=== PATIENT | male | born 1930 | race Caucasian/White ===

== ENCOUNTER 2017-05-28 18:00 | Inpatient (IN) | payer MEDICARE ==
[~2017-05-28] VITALS: Ht 193 cm; Wt 98.9 kg
--- NOTE | 2017-05-28 18:05 | NUR ---
BRA 77 FROM HOME, FOUND BY FAMILY LYING ON THE FLOOR S/P FALL LAST NIGHT. RT SIDE OF FACE HEMATOMA, MULTIPLE BRUISING NOTED ALL OVER BODY. PATIENT A/OX 3. BREATHING EVEN AND UNLABORED. NO SOB. VITALS STABLE. SAFETY AND COFMORT MEASURES IN PLACE. AWAITING MD ORDERS.
--- NOTE | 2017-05-28 18:10 | NUR ---
GRAPHIC PRE PRESS TRADES WORKER AT BEDSIDE FOR BLOOD DRAW
--- NOTE | 2017-05-28 18:21 | NUR ---
PATIENT MEDICATED PER MD ORDERS.
[2017-05-28 18:27] LABS: EOSINOPHILS % (AUTO) 0.2 % (0.0-6.0); NEUTROPHILS # (AUTO) 16.6 /CMM (1.8-8.9)
[2017-05-28] MEDS ORDERED: IV NS 0.9% 1,000 ML BAG IV ONE ×2 (18:30→19:00)
[2017-05-28 18:34] LABS: BASOPHILS % (AUTO) 0.1 % (0.0-2.0); HEMATOCRIT 35 % (39-51); LYMPHOCYTES # (AUTO) 1.1 /CMM (0.8-4.8); LYMPHOCYTES % (AUTO) 5.8 % (20.0-44.0); MEAN CORPUSCULAR HEMOGLOBIN 30 PG (26.0-33.0); MEAN CORPUSCULAR HGB CONC 34 g/dl (31.0-36.0); MEAN CORPUSCULAR VOLUME 89 fL (80-96); MONOCYTES # (AUTO) 1.4 /CMM (0.1-1.30); MONOCYTES % (AUTO) 7.5 % (2.0-12.0); NEUTROPHILS % (AUTO) 86.4 % (43.0-81.0); PLATELET COUNT (AUTO) 150 /CMM (150-450); RDW COEFFICIENT OF VARIATION 14.7 (11.5-15.0); RED BLOOD CELL COUNT(AUTO) 3.93 MIL/uL (4.5-6.0); WHITE BLOOD COUNT (AUTO) 19.1 K/uL (4.3-11.0)
[2017-05-28 18:47] LABS: ALANINE AMINOTRANSFERASE 90 U/L (12-78); ALBUMIN 3.6 g/dL (3.4-5.0); ALCOHOL, BLOOD < 3 mg/dL (0-0); ALKALINE PHOSPHATASE 80 U/L (46-116); ASPARTATE AMINOTRANSFERASE 598 U/L (15-37); BILIRUBIN,DIRECT 0.2 mg/dL (0.0-0.2); BILIRUBIN,TOTAL 1.1 mg/dL (0.2-1.0); CALCIUM, SERUM 9.2 mg/dL (8.5-10.1); CARBON DIOXIDE 21 mmol/L (21-32); CHLORIDE 106 mmol/L (98-107); CREATININE 3.5 mg/dL (0.6-1.3); GLUCOSE 153 mg/dL (74-106); POTASSIUM 5.9 mmol/L (3.5-5.1); SODIUM SERUM 139 mmol/L (136-145); TOTAL PROTEIN, SERUM 7.6 g/dL (6.4-8.2)
[2017-05-28 18:49] LABS: TROPONIN I 13.743 ng/mL (0.00-0.056)
[2017-05-28 18:51] LABS: UREA NITROGEN, BLOOD 93 mg/dL (7-18)
--- NOTE | 2017-05-28 18:55 | NUR ---
CALLED (LOCKSTITCH CUP SETTER BLIND ESCORT), TRANSFERRED CALL TO .
--- NOTE | 2017-05-28 19:10 | NUR ---
16 FR eckert catheter inserted per sterile protocal. Immediate output 350 ML of urine, light brown with clots.
--- NOTE | 2017-05-28 19:10 | NUR ---
REPORT GIVEN TO MARI BARON FOR ELIAS.
--- NOTE | 2017-05-28 19:12 | NUR ---
RECEIVED REPORT FROM TOD ORELLANA
[2017-05-28] MEDS ORDERED: CT SWABBABLE VALVE TRANS SET 1 EA INFUS.SET MC ONE (19:18)
[2017-05-28] MEDS ORDERED: IOHEXOL-300 100 ML VIAL IV ONE ×2 (19:18→19:52)
--- NOTE | 2017-05-28 19:25 | NUR ---
PT TO CT
--- NOTE | 2017-05-28 19:51 | NUR ---
NEW IV STARTED ON RAC, 18 G IN RADIOLOGY. IV ON LEFT AC NO LONGER PATENT.
--- NOTE | 2017-05-28 20:04 | NUR ---
PT RETURNED FROM CT.
[2017-05-28 20:11] LABS: INR 0.96 (0.87-1.13)
[2017-05-28 20:39] LABS: APPEARANCE,URINE Slightly Cloudy (CLEAR); BILIRUBIN,URINE SMALL (NEGATIVE); BLOOD, URINE Large Ery/uL (NEGATIVE); COLOR,URINE Dark (YELLOW); KETONES,URINE Negative (NEGATIVE); LEUKOCYTE ESTERASE ,URINE Negative (NEGATIVE); NITRITE, URINE Negative (NEGATIVE); PH,URINE 5.5 (5.0-8.0); PROTEIN,URINE 100 mg/dl (NEGATIVE); UGLUCOSE Negative (NEGATIVE); UROBILINOGEN,URINE 0.2 EU/dL (0.2)
--- NOTE | 2017-05-28 20:40 | NUR ---
FAMILY AT BEDSIDE
--- NOTE | 2017-05-28 20:44 | NUR ---
LAB AT BEDSIDE FOR LACTIC REDRAW
[2017-05-28 20:50] LABS: BACTERIA,URINE Rare /HPF (None Seen); RBC,URINE 21-50 /HPF (0-2); SQUAMOUS EPITHELIAL CELL,UR Few /HPF (None Seen); WBC,URINE 0-2 /HPF (0-3)
[2017-05-28] MEDS ORDERED: MORPHINE SULFATE INJ 2 MG/ML DISP.SYRIN IV ONE (21:30)
[2017-05-28] MEDS ORDERED: CEFTRIAXONE 1GM BAG (ER ONLY) 1 GM/50 ML PIGGYBACK IV ONE (21:30)
[2017-05-28] MEDS ORDERED: ONDANSETRON HCL/PF - ER 4 MG/2 ML VIAL IV ONE (21:30)
--- NOTE | 2017-05-28 21:31 | NUR ---
DR. KO SPEAKING TO PT AND FAMILY REGARDING RESULTS
--- NOTE | 2017-05-28 21:34 | NUR ---
CALLED NURSING SUP. FOR ICU BED
--- NOTE | 2017-05-28 21:35 | NUR ---
KELLIE CHOU, SREE RAMSEY NP ULTIMATE HOOPS TRAINER
--- NOTE | 2017-05-28 21:46 | NUR ---
DR.KASHANI CHOU
[2017-05-28] MEDS ORDERED: CEFTRIAXONE 1GM BAG (ER ONLY) 50 ML IV ONE (21:48)
[2017-05-28] MEDS ORDERED: ONDANSETRON HCL/PF 4 MG/2 ML VIAL ONE (21:48)
[2017-05-28] MEDS ORDERED: MORPHINE SULFATE INJ 4 MG/ML DISP.SYRIN ONE (21:48)
--- NOTE | 2017-05-28 22:00 | NUR ---
PT REFUSED ZOFRAN AND MORPHINE AT THIS TIME. RISK AND BENEFITS EXPLAINED X3. PT STRONGLY REFUSES AT THIS TIME.
--- NOTE | 2017-05-28 22:20 | NUR ---
ICU 256
--- NOTE | 2017-05-28 22:32 | NUR ---
PATRICE FROM ICU STATES THEY ARE NOT ABLE TO TAKE REPORT AT THIS TIME AND WILL CALL SOON THEY ARE AVAILBLE
--- NOTE | 2017-05-28 23:11 | NUR ---
REPORT GIVEN TO TOD WHITLOCK FOR ELIAS.
[2017-05-28] MEDS ORDERED: ACETAMINOPHEN 325 MG TABLET PO PRN (23:30)
[2017-05-28] MEDS ORDERED: IV NS 0.9% 1,000 ML IV PRN (23:30)
[2017-05-28] MEDS ORDERED: ONDANSETRON HCL/PF 4 MG/2 ML VIAL IVP PRN (23:30)
[2017-05-28] MEDS ORDERED: MAG HYDROX/AL HYDROX/SIMETH 30 ML UDC PO PRN (23:30)
[2017-05-28] MEDS ORDERED: Z GUARD REMEDY 2 OZ OINT TP PRN (23:30)
--- NOTE | 2017-05-28 23:49 | NUR ---
PT TRASNFERRED TO ICU 254 Addendum: 05/28/17 at 2349 by CARLITOS PER ACLS PROTOCOL
[2017-05-29] VITALS (25 sets, daily range): BP systolic 95–135; BP diastolic 46–80
[2017-05-29 01:06] LABS: CALCIUM, SERUM 8.3 mg/dL (8.5-10.1); CARBON DIOXIDE 18 mmol/L (21-32); CHLORIDE 107 mmol/L (98-107); CREATININE 3.4 mg/dL (0.6-1.3); GLUCOSE 174 mg/dL (74-106); POTASSIUM 5.8 mmol/L (3.5-5.1); SODIUM SERUM 137 mmol/L (136-145)
[2017-05-29 01:11] LABS: UREA NITROGEN, BLOOD 90 mg/dL (7-18)
[2017-05-29] MEDS ORDERED: SODIUM POLYSTYRENE SULFONATE 15 G/60 ML BOTTLE PO ONE (02:00)
[2017-05-29] MEDS ORDERED: SODIUM POLYSTYRENE SULFONATE 15 G/60 ML BOTTLE ONE (02:36)
--- NOTE | 2017-05-29 03:17 | NUR ---
FLOOR DIRECTOR. ADMISSION. RECEIVED THE PT FROM ER VIA [facility]. ROOM 256. ADMITTED THE PT TO ICU FOR SEPSIS,N STEMI.PT AWAKE, ALERT, FOLLOW COMMANDS. FURNITURE REMOVALIST SHOWING NSR. OXYGEN 2L VIA NASAL CANNULA. SAT 99%, NO ACUTE DISTRESS NOTED. IV RT AC18G. LT AC 20G. IVF NS 100ML/H. FC PATENT. URINE DRAINING. HOB ELEVATED. MULTIPLE WOUND NOTED. PICTURE TAKEN AND ATTACHED TO THE CHART. AFEBRILE. WILL CONTINUE TO MONITOR VITALS.
--- NOTE | 2017-05-29 05:19 | NUR ---
FWS FACULTY ASSISTANT. AM CARE. ORAL CARE, BED BATH GIVEN. LINEN CHANGERD. REMAINING SAME OXYGEN TOLERATED WELL. SAT 98%. NO ACUTE DISTRESS NOTED. ALUMINA REFINERY OPERATOR SHOWING NSR. IVRT HAND 18G. IVF NS 100ML/G. FC PATENT. URINE DRAINING HOB ELEVATED. TURN AND REPOSITION Q2H. AFEBRILE. WILL CONTINUE TO MONITOR VITALS.
[2017-05-29 06:12] LABS: BASOPHILS % (AUTO) 0.1 % (0.0-2.0); EOSINOPHILS % (AUTO) 0.1 % (0.0-6.0); HEMATOCRIT 30 % (39-51); HEMOGLOBIN 9.8 g/dL (13.5-17.5); LYMPHOCYTES # (AUTO) 1.1 /CMM (0.8-4.8); LYMPHOCYTES % (AUTO) 8.6 % (20.0-44.0); MEAN CORPUSCULAR HEMOGLOBIN 31 PG (26.0-33.0); MEAN CORPUSCULAR HGB CONC 33 g/dl (31.0-36.0); MEAN CORPUSCULAR VOLUME 93 fL (80-96); NEUTROPHILS # (AUTO) 10.4 /CMM (1.8-8.9); NEUTROPHILS % (AUTO) 83.2 % (43.0-81.0); PLATELET COUNT (AUTO) 112 /CMM (150-450); RDW COEFFICIENT OF VARIATION 16.1 (11.5-15.0); RED BLOOD CELL COUNT(AUTO) 3.19 MIL/uL (4.5-6.0); WHITE BLOOD COUNT (AUTO) 12.5 K/uL (4.3-11.0)
[2017-05-29 06:32] LABS: CALCIUM, SERUM 8.1 mg/dL (8.5-10.1); CARBON DIOXIDE 20 mmol/L (21-32); CHLORIDE 107 mmol/L (98-107); CREATININE 3.4 mg/dL (0.6-1.3); GLUCOSE 165 mg/dL (74-106); MAGNESIUM 2.1 mg/dL (1.8-2.4); PHOSPHORUS 4.4 mg/dL (2.5-4.9); POTASSIUM 5.8 mmol/L (3.5-5.1); SODIUM SERUM 137 mmol/L (136-145)
[2017-05-29 06:33] LABS: CHOLESTEROL 134 mg/dL (<200); HDL CHOLESTEROL 52 mg/dL (40-60); LDL 61 mg/dL (0-99); TRIGLYCERIDES 142 mg/dL (30-150); UREA NITROGEN, BLOOD 89 mg/dL (7-18)
--- NOTE | 2017-05-29 07:05 | NUR ---
QUALITY CONTROL OPERATOR- INITIAL NOTE RECEIVED PT A/O X3, RESTING COMFORTABLY IN BED. ON 2L NC, RESPIRATIONS EVEN AND UNLABORED, NO SOB OR DISTRESS PRESENT. PT DENIES CHEST PAIN OR DISCOMFORT. BEDSIDE MONITOR REVEALS SINUS RHYTHM. MATTHEWS CATHETER DRAINING TO GRAVITY CLEAR, KEVIN URINE. RAC 20 G RUNNING NS @ 100 MLS/HR. LAC 18G HL FLUSHED, PATENT AND INTACT. IV SITE FREE OF REDNESS, SWELLING AND INFLAMMATION. SAFETY MEASURES TAKEN: BED LOCKED AND IN LOW POSITION, SIDE RAILS UP X2, BED ALARM ON AND CALL LIGHT WITHIN REACH, WILL CONTINUE TO MONITOR.
[2017-05-29 08:48] LABS: ALBUMIN 2.8 g/dL (3.4-5.0); BILIRUBIN,DIRECT 0.1 mg/dL (0.0-0.2); BILIRUBIN,TOTAL 0.4 mg/dL (0.2-1.0)
[2017-05-29 08:54] LABS: THYROID STIMULATING HORMONE 6.575 uIU/mL (0.358-3.74)
[2017-05-29] MEDS ORDERED: HEPARIN SODIUM, PORCINE 5000 UNITS/1 ML VIAL SQ SCH (09:00)
[2017-05-29] MEDS: ASPIRIN 81 MG TAB.CHEW PO SCH (09:06)
[2017-05-29] MEDS: IV NS 0.9% 1,000 ML IV PRN (09:06)
--- NOTE | 2017-05-29 09:33 | NUR ---
WOUND CARE CONSULT: PT PRESENTS WITH MULTIPLE AREAS OF LARGE BRUISES, DRY ABRASIONS AND LEFT LATERAL KNEE DEEP TISSUE INJURY, RT HIP AREA NONBLANCHABLE REDNESS, RT FACIAL TRAUMA WITH SWELLING AND BRUISING, ALL PRESENT ON ADMISSION. DEFER TO MD FOR FACE. RECOMMENDATIONS MADE FOR SKIN PROTECTION. DISCUSSED WITH NURSING STAFF. FIRST STEP MATTRESS ORDERED. PT INCONTINENT OF STOOL. WILL SEE PRN. MD IN AGREEMENT WITH PLAN OF CARE. Addendum: 05/29/17 at 0935 by APOLINAR HYDE WNDNU Amended: Links added.
[2017-05-29] MEDS: TOBRAMYCIN SULFATE OPHTH OINT 3.5 GM TUBE RIGHTEYE SCH ×4 (10:07→22:07)
[2017-05-29] MEDS ORDERED: FURO20TA4 PO (14:57)
[2017-05-29] MEDS ORDERED: EXEN5PEN2 SQ (14:57)
[2017-05-29] MEDS ORDERED: SPIR25TA4 PO (14:57)
[2017-05-29] MEDS ORDERED: AMLO5TAB4 PO (14:57)
[2017-05-29] MEDS ORDERED: ESCI20TA PO (14:57)
[2017-05-29] MEDS ORDERED: ATOR80TA PO (14:57)
[2017-05-29] MEDS ORDERED: CLOP75TA15 PO (14:57)
[2017-05-29] MEDS ORDERED: HYDR-548 PO (14:57)
[2017-05-29] MEDS ORDERED: ASPI-1169 PO (14:57)
[2017-05-29] MEDS ORDERED: ALPR0.25 PO (14:57)
[2017-05-29] MEDS ORDERED: GLIM1TAB2 PO (14:57)
[2017-05-29] MEDS ORDERED: LISI10TA5 PO (14:57)
[2017-05-29] MEDS ORDERED: FOLI1TAB16 PO (14:57)
[2017-05-29] MEDS ORDERED: CARV3.122 PO (14:57)
[2017-05-29] MEDS ORDERED: ALLO100T PO (14:57)
[2017-05-29] MEDS ORDERED: CEFTRIAXONE 1 G in IV D5W 50 ML IV SCH (20:00)
--- NOTE | 2017-05-29 22:10 | NUR ---
ICU/MACHINE HAMPER MAKER CLEANED UP PT'S EYES WITH NORMAL SALINE TO NORTH EYES THEN APPLIED OINT TO ONLY THE RIGHT EYE. THEN APPLIED ICE TO THE RIGHT EYE.
[2017-05-29] MEDS: HYDROCODONE/APAP 5/325MG 1 EACH TABLET PO PRN (23:01)
--- NOTE | 2017-05-29 23:10 | NUR ---
ICU/ELECTRICAL SERVICE TECHNICIAN PT RATED HIS PAIN AT 7/10, GAVE NORCO FOR THIS. PAIN IS TO THE RIGHT SHOULDER, KNEE, AND FACE FROM FALL. WILL CONTINUE TO MONITOR THIS PT. PT WAS TURNED AND REPOSITION FOR COMFORT AND CARE.
[2017-05-30] VITALS (15 sets, daily range): BP systolic 101–119; BP diastolic 35–74
--- NOTE | 2017-05-30 01:30 | NUR ---
ICU/BRUSHER AND SHEARER PT GIVEN AM CARE. PT TOLERATED THIS WELL. PT WAS TURNED AND REPOSITION FOR FOR COMFORT AND CARE.
[2017-05-30 01:43] LABS: CALCIUM, SERUM 7.3 mg/dL (8.5-10.1); CARBON DIOXIDE 20 mmol/L (21-32); CHLORIDE 111 mmol/L (98-107); CREATININE 3.8 mg/dL (0.6-1.3); GLUCOSE 132 mg/dL (74-106); POTASSIUM 4.4 mmol/L (3.5-5.1); SODIUM SERUM 141 mmol/L (136-145)
[2017-05-30 01:46] LABS: UREA NITROGEN, BLOOD 94 mg/dL (7-18)
[2017-05-30] MEDS: IV NS 0.9% 1,000 ML IV PRN ×2 (02:10→08:14)
[2017-05-30] MEDS: HYDROCODONE/APAP 5/325MG 1 EACH TABLET PO PRN ×3 (02:58→21:10)
--- NOTE | 2017-05-30 03:10 | NUR ---
ICU/COMPOSITION SIDING WORKER PT RATED HIS PAIN AT 7/10, GAVE NORCO FOR THIS. PAIN IS TO THE RIGHT SHOULDER AND FACE FROM FALL. WILL CONTINUE TO MONITOR THIS PT. PT WAS TURNED AND REPOSITION FOR COMFORT AND CARE.
[2017-05-30] MEDS: TOBRAMYCIN SULFATE OPHTH OINT 3.5 GM TUBE RIGHTEYE SCH ×4 (04:01→21:12)
[2017-05-30 05:20] LABS: BASOPHILS % (AUTO) 0.1 % (0.0-2.0); EOSINOPHILS # (AUTO) 0.1 /CMM (0.0-0.7); EOSINOPHILS % (AUTO) 0.9 % (0.0-6.0); HEMATOCRIT 25 % (39-51); HEMOGLOBIN 8.4 g/dL (13.5-17.5); LYMPHOCYTES # (AUTO) 0.8 /CMM (0.8-4.8); LYMPHOCYTES % (AUTO) 8.9 % (20.0-44.0); MEAN CORPUSCULAR HEMOGLOBIN 31 PG (26.0-33.0); MEAN CORPUSCULAR HGB CONC 34 g/dl (31.0-36.0); MEAN CORPUSCULAR VOLUME 92 fL (80-96); MONOCYTES # (AUTO) 0.6 /CMM (0.1-1.30); MONOCYTES % (AUTO) 6.9 % (2.0-12.0); NEUTROPHILS % (AUTO) 83.2 % (43.0-81.0); PLATELET COUNT (AUTO) 103 /CMM (150-450); RED BLOOD CELL COUNT(AUTO) 2.67 MIL/uL (4.5-6.0); WHITE BLOOD COUNT (AUTO) 8.5 K/uL (4.3-11.0)
[2017-05-30 05:41] LABS: ALANINE AMINOTRANSFERASE 58 U/L (12-78); ALBUMIN 2.3 g/dL (3.4-5.0); ALKALINE PHOSPHATASE 50 U/L (46-116); ASPARTATE AMINOTRANSFERASE 278 U/L (15-37); BILIRUBIN,TOTAL 0.3 mg/dL (0.2-1.0); CALCIUM, SERUM 7.3 mg/dL (8.5-10.1); CARBON DIOXIDE 23 mmol/L (21-32); CHLORIDE 111 mmol/L (98-107); CREATININE 3.8 mg/dL (0.6-1.3); GLUCOSE 132 mg/dL (74-106); MAGNESIUM 1.8 mg/dL (1.8-2.4); PHOSPHORUS 4.8 mg/dL (2.5-4.9); POTASSIUM 4.4 mmol/L (3.5-5.1); SODIUM SERUM 141 mmol/L (136-145)
[2017-05-30 05:45] LABS: UREA NITROGEN, BLOOD 92 mg/dL (7-18)
[2017-05-30 06:15] LABS: TROPONIN I 2.083 ng/mL (0.00-0.056)
[2017-05-30] MEDS: ASPIRIN 81 MG TAB.CHEW PO SCH (08:12)
[2017-05-30] MEDS: ATORVASTATIN 10 MG TABLET PO SCH (08:12)
[2017-05-30] MEDS: CARVEDILOL 3.125 MG TABLET PO SCH ×2 (08:13→21:09)
--- NOTE | 2017-05-30 09:00 | NUR ---
STUDIO OPERATOR- REPORT GIVEN TO CNC OPERATOR PROGRAMMER NILESH. 0915- PT TRANSFERRED TO TELE ROOM 117-1. ALL BELONGINGS SENT WITH PT. FAMILY AWARE OF DOWNGRADE/ TRANSFER.
--- NOTE | 2017-05-30 19:34 | NUR ---
Handoff to night nurse.
--- NOTE | 2017-05-30 20:00 | NUR ---
RN INITIAL NOTES RECEIVED PT IN BED WITH NO SIGNS OF DISTRESS. PT C/O OF PAIN / NO PAIN MEDICATION NEED, CHANGE IN POSITION. PT HAS MULTIPLE VISIBLE ABRASIONS TO FACE. MATTHEWS INTACT. IV IN R AND L AC 0.9NS INFUSING @70. CALL LIGHT WITHIN REACH, BED IN THE LOW AND LOCKED POSITION. ALL SAFETY PRECAUTIONS TAKEN. WILL CONTINUE TO MONITOR PT.
[2017-05-30] MEDS: ZOLPIDEM TARTRATE 5 MG TABLET PO PRN (21:10)
[2017-05-31] VITALS (7 sets, daily range): BP systolic 113–140; BP diastolic 41–62
[2017-05-31 01:01] LABS: CALCIUM, SERUM 7.3 mg/dL (8.5-10.1); CARBON DIOXIDE 20 mmol/L (21-32); CHLORIDE 111 mmol/L (98-107); CREATININE 3.8 mg/dL (0.6-1.3); GLUCOSE 150 mg/dL (74-106); POTASSIUM 4.8 mmol/L (3.5-5.1); SODIUM SERUM 140 mmol/L (136-145); UREA NITROGEN, BLOOD 88 mg/dL (7-18)
[2017-05-31] MEDS: TOBRAMYCIN SULFATE OPHTH OINT 3.5 GM TUBE RIGHTEYE SCH ×4 (05:30→21:27)
[2017-05-31] MEDS: HYDROCODONE/APAP 5/325MG 1 EACH TABLET PO PRN ×3 (05:38→21:34)
--- NOTE | 2017-05-31 06:54 | NUR ---
RN CLOSING NOTES NO CHANGE IN PT CONDITION OVER NIGHT, PT IN BED WITH NO SIGNS OF DISTRESS. ALL MEDICATIONS GIVEN NEEDED . MATTHEWS INTACT. IV IN R AC 0.9NS INFUSING @70. CALL LIGHT WITHIN REACH, BED IN THE LOW AND LOCKED POSITION. ALL SAFETY PRECAUTIONS TAKEN. WILL ENDORSE TO AM RN.
[2017-05-31 08:34] LABS: BASOPHILS % (AUTO) 0.2 % (0.0-2.0); EOSINOPHILS # (AUTO) 0.1 /CMM (0.0-0.7); EOSINOPHILS % (AUTO) 2.3 % (0.0-6.0); HEMATOCRIT 24 % (39-51); HEMOGLOBIN 7.9 g/dL (13.5-17.5); LYMPHOCYTES # (AUTO) 0.6 /CMM (0.8-4.8); LYMPHOCYTES % (AUTO) 11.4 % (20.0-44.0); MEAN CORPUSCULAR HEMOGLOBIN 30 PG (26.0-33.0); MEAN CORPUSCULAR HGB CONC 33 g/dl (31.0-36.0); MEAN CORPUSCULAR VOLUME 92 fL (80-96); MONOCYTES # (AUTO) 0.4 /CMM (0.1-1.30); MONOCYTES % (AUTO) 8.8 % (2.0-12.0); NEUTROPHILS # (AUTO) 3.9 /CMM (1.8-8.9); NEUTROPHILS % (AUTO) 77.3 % (43.0-81.0); PLATELET COUNT (AUTO) 94 /CMM (150-450); RDW COEFFICIENT OF VARIATION 15.2 (11.5-15.0); RED BLOOD CELL COUNT(AUTO) 2.65 MIL/uL (4.5-6.0)
[2017-05-31] MEDS: ATORVASTATIN 10 MG TABLET PO SCH (08:57)
[2017-05-31] MEDS: LEVOTHYROXINE SODIUM 25 MCG TABLET PO SCH (08:58)
[2017-05-31] MEDS: ASPIRIN 81 MG TAB.CHEW PO SCH (08:58)
[2017-05-31] MEDS: CARVEDILOL 3.125 MG TABLET PO SCH ×2 (08:59→21:28)
[2017-05-31 09:14] LABS: ALANINE AMINOTRANSFERASE 52 U/L (12-78); ALBUMIN 2.1 g/dL (3.4-5.0); ALKALINE PHOSPHATASE 47 U/L (46-116); ASPARTATE AMINOTRANSFERASE 167 U/L (15-37); BILIRUBIN,TOTAL 0.3 mg/dL (0.2-1.0); CALCIUM, SERUM 7.4 mg/dL (8.5-10.1); CARBON DIOXIDE 20 mmol/L (21-32); CHLORIDE 115 mmol/L (98-107); CREATININE 3.8 mg/dL (0.6-1.3); GLUCOSE 142 mg/dL (74-106); MAGNESIUM 1.8 mg/dL (1.8-2.4); POTASSIUM 4.8 mmol/L (3.5-5.1); SODIUM SERUM 145 mmol/L (136-145)
[2017-05-31 09:15] LABS: UREA NITROGEN, BLOOD 85 mg/dL (7-18)
[2017-05-31 09:21] LABS: TROPONIN I 0.721 ng/mL (0.00-0.056)
[2017-05-31] MEDS ORDERED: EPOETIN ALFA (10,000 UNIT) 10,000 UNIT/ML VIAL SQ ONE (10:00)
[2017-05-31] MEDS: IV NS 0.9% 1,000 ML IV PRN (10:28)
[2017-05-31 11:57] LABS: CREATINE KINASE, TOTAL 4951 U/L (39-308)
[2017-05-31 12:22] LABS: CREATINE KINASE MB 4.7 ng/mL (0-3.6)
[2017-05-31 15:24] LABS: CREATINE KINASE, TOTAL 36939 U/L (39-308)
[2017-05-31 16:52] LABS: BAND % (MANUAL) 5 % (0.0-5.0); EOSINOPHILS % (MANUAL) 2 % (0-4); LYMPHOCYTES % (MANUAL) 14 % (16-48); MONOCYTES % (MANUAL) 4 % (0-11.0); NEUTROPHILS % (MANUAL) 75 (42-76)
--- NOTE | 2017-05-31 20:00 | NUR ---
RN INITIAL NOTES RECEIVED PT IN BED WITH NO SIGNS OF DISTRESS. PT HAS MULTIPLE VISIBLE ABRASIONS TO FACE. PT HAS A MATTHEWS PLACE. IV IN R AND L AC. CALL LIGHT WITHIN REACH, BED IN THE LOW AND LOCKED POSITION. ALL SAFETY PRECAUTIONS TAKEN. WILL CONTINUE TO MONITOR PT.
[2017-06-01] VITALS (7 sets, daily range): BP systolic 95–130; BP diastolic 50–76
[2017-06-01] MEDS: TOBRAMYCIN SULFATE OPHTH OINT 3.5 GM TUBE RIGHTEYE SCH ×4 (03:28→21:05)
[2017-06-01] MEDS: HYDROCODONE/APAP 5/325MG 1 EACH TABLET PO PRN (03:30)
--- NOTE | 2017-06-01 07:35 | NUR ---
RN CLOSING NOTES NO CHANGES WITH PT OVER NIGHT, PT IN BED WITH NO SIGNS OF DISTRESS. PT HAS MULTIPLE VISIBLE ABRASIONS TO FACE. PT HAS A MATTHEWS PLACE. IV IN R AND L AC. CALL LIGHT WITHIN REACH, BED IN THE LOW AND LOCKED POSITION.ALL MEDICATION GIVEN. ALL SAFETY PRECAUTIONS TAKEN. WILL ENDORSE TO AM RN.
--- NOTE | 2017-06-01 07:42 | NUR ---
EARL RN OPENING NOTES RECEIVED PATIENT IN STABLE CONDITION. IN NO APPARENT DISTRESS. PATIENT IS RESTING IN BED. CALL LIGHT IS WITHIN REACH. BEDSIDE RAILS ARE UP X2. BED IS LOCKED AND LOWERED. WILL CONTINUE TO MONITOR.
[2017-06-01] MEDS: ATORVASTATIN 10 MG TABLET PO SCH (08:30)
[2017-06-01] MEDS: LEVOTHYROXINE SODIUM 25 MCG TABLET PO SCH (08:30)
[2017-06-01] MEDS: ASPIRIN 81 MG TAB.CHEW PO SCH (08:31)
[2017-06-01] MEDS: CARVEDILOL 3.125 MG TABLET PO SCH ×2 (08:31→20:44)
[2017-06-01 09:01] LABS: CALCIUM, SERUM 7.4 mg/dL (8.5-10.1); CHLORIDE 111 mmol/L (98-107); CREATININE 3.3 mg/dL (0.6-1.3); GLUCOSE 136 mg/dL (74-106); POTASSIUM 4.7 mmol/L (3.5-5.1); SODIUM SERUM 140 mmol/L (136-145)
[2017-06-01 09:06] LABS: CARBON DIOXIDE 19 mmol/L (21-32)
[2017-06-01 09:16] LABS: UREA NITROGEN, BLOOD 82 mg/dL (7-18)
[2017-06-01] MEDS: IV NS 0.9% 1,000 ML IV PRN (15:08)
--- NOTE | 2017-06-01 18:39 | NUR ---
MS RN CLOSING NOTES PATIENT RESTING IN BED IN NO APPARENT DISTRESS. BEDSIDE RAILS ARE UP X2. BED IS LOCKED AND LOWERED. CALL LIGHT IS WITHIN REACH. WILL ENDORSE CARE TO PILOT TEACHER NURSE FOR ELIAS.
[2017-06-02] MEDS: TOBRAMYCIN SULFATE OPHTH OINT 3.5 GM TUBE RIGHTEYE SCH ×4 (03:16→21:26)
[2017-06-02 04:00] VITALS: BP 140/78
[2017-06-02 08:22] LABS: BASOPHILS % (AUTO) 0.1 % (0.0-2.0); EOSINOPHILS # (AUTO) 0.2 /CMM (0.0-0.7); EOSINOPHILS % (AUTO) 2.4 % (0.0-6.0); HEMATOCRIT 25 % (39-51); HEMOGLOBIN 8.4 g/dL (13.5-17.5); LYMPHOCYTES # (AUTO) 0.7 /CMM (0.8-4.8); LYMPHOCYTES % (AUTO) 8.5 % (20.0-44.0); MEAN CORPUSCULAR HEMOGLOBIN 30 PG (26.0-33.0); MEAN CORPUSCULAR HGB CONC 33 g/dl (31.0-36.0); MEAN CORPUSCULAR VOLUME 92 fL (80-96); MONOCYTES # (AUTO) 0.6 /CMM (0.1-1.30); MONOCYTES % (AUTO) 7.7 % (2.0-12.0); NEUTROPHILS # (AUTO) 6.5 /CMM (1.8-8.9); NEUTROPHILS % (AUTO) 81.3 % (43.0-81.0); PLATELET COUNT (AUTO) 131 /CMM (150-450); RDW COEFFICIENT OF VARIATION 15.6 (11.5-15.0); RED BLOOD CELL COUNT(AUTO) 2.75 MIL/uL (4.5-6.0)
[2017-06-02 09:03] LABS: ALANINE AMINOTRANSFERASE 36 U/L (12-78); ALKALINE PHOSPHATASE 45 U/L (46-116); ASPARTATE AMINOTRANSFERASE 95 U/L (15-37); BILIRUBIN,TOTAL 0.4 mg/dL (0.2-1.0); CALCIUM, SERUM 7.7 mg/dL (8.5-10.1); CARBON DIOXIDE 19 mmol/L (21-32); CREATININE 2.7 mg/dL (0.6-1.3); GLUCOSE 138 mg/dL (74-106); MAGNESIUM 1.8 mg/dL (1.8-2.4); PHOSPHORUS 3.6 mg/dL (2.5-4.9); TOTAL PROTEIN, SERUM 5.1 g/dL (6.4-8.2); UREA NITROGEN, BLOOD 75 mg/dL (7-18)
[2017-06-02] MEDS: ATORVASTATIN 10 MG TABLET PO SCH (09:03)
[2017-06-02] MEDS: CARVEDILOL 3.125 MG TABLET PO SCH ×2 (09:03→21:00)
[2017-06-02] MEDS: ASPIRIN 81 MG TAB.CHEW PO SCH (09:03)
[2017-06-02] MEDS: LEVOTHYROXINE SODIUM 25 MCG TABLET PO SCH (09:03)
[2017-06-02 09:24] LABS: CHLORIDE 115 mmol/L (98-107); POTASSIUM 5.1 mmol/L (3.5-5.1); SODIUM SERUM 145 mmol/L (136-145)
[2017-06-02 12:14] LABS: BAND % (MANUAL) 3 % (0.0-5.0); EOSINOPHILS % (MANUAL) 5 % (0-4); LYMPHOCYTES % (MANUAL) 3 % (16-48); MONOCYTES % (MANUAL) 6 % (0-11.0); NEUTROPHILS % (MANUAL) 83 (42-76)
--- NOTE | 2017-06-02 19:30 | NUR ---
MS RN OPENING NOTES: PATIENT IN BED, AOX4, ON ROOM AIR, BREATHING EVEN AND UNLABORED. APPEARS CALM AND IN NO DISTRESS. DENIES PEDRO PABLO, ONLY STATES THAT HE WANTS TO BE ABLE TO SLEEP WELL TONIGHT. PIV OVER RAC G 18, HL INTACT AND PATENT TO FLUSH. PIV OVER LAC G 20 PATENT AND INTACT TO FLUSH. PROVIDED FOR COMFORT AND SAFETY. BED IN LOWEST AND LOCKED POSITION, SIDERAILS UP X 2, CALL LIGHT WITHIN REACH, BED ALARMS ON. WILL CONT TO MONITOR.
[2017-06-02 20:00] VITALS: BP 146/96
--- NOTE | 2017-06-02 21:31 | NUR ---
RN NOTES: PATIENT REFUSED CARVEDILOL, SAYING THAT HE WILL RESUME TAKING IT ONCE HE "GETS CONSENSUS ON MY OTHER DOCTORS" , HE HAS BEEN OFF THIS MEDICATION BEFORE, STATING IT "GAVE HIM TOO MUCH OF A BLOCKAGE"
[2017-06-03] MEDS: HYDROCODONE/APAP 5/325MG 1 EACH TABLET PO PRN (03:14)
--- NOTE | 2017-06-03 03:17 | NUR ---
RN NOTES: PT COMPLAINED OF 7/10 PAIN OVER LOWER BACK AND BUTTOCKS. ADMINISTERED NORCO 5-325 MG PO. WILL CONT TO MONITOR.
[2017-06-03] MEDS: TOBRAMYCIN SULFATE OPHTH OINT 3.5 GM TUBE RIGHTEYE SCH ×4 (03:38→21:12)
--- NOTE | 2017-06-03 06:59 | NUR ---
MS RN OPENING NOTES: PATIENT IN BED, AOX4, ON ROOM AIR, BREATHING EVEN AND UNLABORED. PIV OVER RAC G 18 INTACT AND PATENT TO FLUSH. MATTHEWS CATHETER IN PLACE DRAINING CLOUDY YELLOW URINE. DUE MEDS GIVEN. PROVIDED FOR COMFORT AND SAFETY, BED IN LOWEST AND LOCKED POSITION, SIDERAILS UP X 3. WILL ENDORSE TO AM RN FOR ELIAS.
[2017-06-03 08:00] VITALS: BP 145/54
--- NOTE | 2017-06-03 08:02 | NUR ---
MS/RN OPENING NOTE PATIENT IN BED IN STABLE CONDITION. A/O X 3-4. NO SIGNS OF ACUTE DISTRESS. NO COMPLAIN OF PAIN OR DISCOMFORT. ALL NEEDS ATTENDED TO. CALL LIGHT WITHIN REACH. WILL CONTINUE TO MONITOR TO ENSURE SAFETY.
[2017-06-03 08:49] LABS: BASOPHILS # (AUTO) 0.1 /CMM (0.0-0.2); BASOPHILS % (AUTO) 1.5 % (0.0-2.0); EOSINOPHILS # (AUTO) 0.3 /CMM (0.0-0.7); EOSINOPHILS % (AUTO) 3.2 % (0.0-6.0); HEMATOCRIT 26 % (39-51); HEMOGLOBIN 8.7 g/dL (13.5-17.5); LYMPHOCYTES % (AUTO) 11.9 % (20.0-44.0); MEAN CORPUSCULAR HEMOGLOBIN 30 PG (26.0-33.0); MEAN CORPUSCULAR HGB CONC 34 g/dl (31.0-36.0); MEAN CORPUSCULAR VOLUME 91 fL (80-96); MONOCYTES # (AUTO) 0.6 /CMM (0.1-1.30); MONOCYTES % (AUTO) 7.9 % (2.0-12.0); NEUTROPHILS # (AUTO) 6.1 /CMM (1.8-8.9); NEUTROPHILS % (AUTO) 75.5 % (43.0-81.0); PLATELET COUNT (AUTO) 151 /CMM (150-450); RED BLOOD CELL COUNT(AUTO) 2.87 MIL/uL (4.5-6.0); WHITE BLOOD COUNT (AUTO) 8.1 K/uL (4.3-11.0)
[2017-06-03] MEDS: LEVOTHYROXINE SODIUM 25 MCG TABLET PO SCH (09:47)
[2017-06-03] MEDS: ATORVASTATIN 10 MG TABLET PO SCH (09:47)
[2017-06-03] MEDS: ASPIRIN 81 MG TAB.CHEW PO SCH (09:47)
[2017-06-03] MEDS: CARVEDILOL 3.125 MG TABLET PO SCH ×2 (09:48→21:11)
[2017-06-03 10:15] VITALS: BP 145/54
[2017-06-03 12:05] LABS: CARBON DIOXIDE 21 mmol/L (21-32); CHLORIDE 113 mmol/L (98-107); CREATININE 2.4 mg/dL (0.6-1.3); GLUCOSE 116 mg/dL (74-106); MAGNESIUM 1.8 mg/dL (1.8-2.4); PHOSPHORUS 3.5 mg/dL (2.5-4.9); POTASSIUM 4.9 mmol/L (3.5-5.1); SODIUM SERUM 142 mmol/L (136-145); UREA NITROGEN, BLOOD 71 mg/dL (7-18)
[2017-06-03 16:00] VITALS: BP 139/57
--- NOTE | 2017-06-03 18:48 | NUR ---
MS/RN CLOSING NOTE PATIENT IN BED IN STABLE CONDITION. A/O X 3. NO SIGNS OF ACUTE DISTRESS. NO COMPLAIN OF PAIN OR DISCOMFORT. ALL NEEDS ATTENDED TO. CALL LIGHT WITHIN REACH. WILL ENDORSE TO NEXT SHIFT FOR CONTINUITY OF CARE.
[2017-06-03 20:00] VITALS: BP 156/67
--- NOTE | 2017-06-03 20:05 | NUR ---
RECIEVED MR. Crenshaw ALERT AND ORIENTATED. JOKING AND SMILING. MOVING ALL EXTREMETIES. SPEECH CLEAR SIGNED THE CONSENT AFTER AN EXPLAINATION OF WHAT A [place] STRESS TEST WAS.PLACED THE CONSENT IN THE FRONT OF THE CHART. NOTED BRUISED FACE NECK UPPER CHEST WALL SP FALL AT HOME. MADE AWARE OF BEING NPO AFTER MIDNIGHT
[2017-06-03 20:16] VITALS: BP 156/67
[2017-06-03 22:00] VITALS: BP 156/67
[2017-06-04] MEDS: TOBRAMYCIN SULFATE OPHTH OINT 3.5 GM TUBE RIGHTEYE SCH ×4 (03:39→22:05)
[2017-06-04 04:18] VITALS: BP 158/71
--- NOTE | 2017-06-04 07:30 | NUR ---
RN OPENING NOTES RECEIVED PT. PT STABLE AND RESTING IN BED. NO S/S OF RESPIRATORY DISTRESS. PT IS TRACHED AND VENT DEPENDENT, SETTINGS IN PLACE. NEPHROSTOMY TUBE NOTED, DRAINAGE IS THICK/YELLOW. IV ACCESS LOCATED ON RIGHT ARM INFUSING D5W AT 75 ML/HR. SAFETY MEASURES IN PLACE, BED LOWERED TO LOWEST POSITION, SIDE RAILS RAISED X2. WILL CONTINUE TO MONITOR. Addendum: 06/04/17 at 1310 by MATT SINGH WRONG PATIENT. NOTE IS FOR 114-1 NOT 114-2.
[2017-06-04 07:54] LABS: BASOPHILS % (AUTO) 0.1 % (0.0-2.0); EOSINOPHILS # (AUTO) 0.2 /CMM (0.0-0.7); EOSINOPHILS % (AUTO) 2.6 % (0.0-6.0); HEMATOCRIT 26 % (39-51); HEMOGLOBIN 8.8 g/dL (13.5-17.5); LYMPHOCYTES # (AUTO) 0.9 /CMM (0.8-4.8); LYMPHOCYTES % (AUTO) 10.2 % (20.0-44.0); MEAN CORPUSCULAR HEMOGLOBIN 31 PG (26.0-33.0); MEAN CORPUSCULAR HGB CONC 34 g/dl (31.0-36.0); MEAN CORPUSCULAR VOLUME 91 fL (80-96); MONOCYTES # (AUTO) 0.6 /CMM (0.1-1.30); MONOCYTES % (AUTO) 7.3 % (2.0-12.0); NEUTROPHILS # (AUTO) 6.8 /CMM (1.8-8.9); NEUTROPHILS % (AUTO) 79.8 % (43.0-81.0); PLATELET COUNT (AUTO) 165 /CMM (150-450); RDW COEFFICIENT OF VARIATION 14.9 (11.5-15.0); RED BLOOD CELL COUNT(AUTO) 2.88 MIL/uL (4.5-6.0); WHITE BLOOD COUNT (AUTO) 8.5 K/uL (4.3-11.0)
[2017-06-04 08:00] VITALS: BP 154/57
[2017-06-04 08:50] LABS: CALCIUM, SERUM 8.1 mg/dL (8.5-10.1); CARBON DIOXIDE 22 mmol/L (21-32); CHLORIDE 113 mmol/L (98-107); CREATININE 2.3 mg/dL (0.6-1.3); GLUCOSE 124 mg/dL (74-106); MAGNESIUM 1.7 mg/dL (1.8-2.4); PHOSPHORUS 3.4 mg/dL (2.5-4.9); SODIUM SERUM 143 mmol/L (136-145); UREA NITROGEN, BLOOD 68 mg/dL (7-18)
[2017-06-04] MEDS: CARVEDILOL 3.125 MG TABLET PO SCH ×2 (09:00→22:08)
[2017-06-04] MEDS ORDERED: REGADENOSON 0.4 MG/5 ML DISP.SYRIN IVP ONE (09:00)
--- NOTE | 2017-06-04 09:30 | NUR ---
RN NOTES PT TAKEN FOR [place] AT 0830. NPO REMOVED UPON RETURN TO UNIT.
--- NOTE | 2017-06-04 09:30 | NUR ---
NM: MYOCARDIAL PERFUSION IMAGING WAS COMPLETED. TECH:RB.
[2017-06-04] MEDS: ASPIRIN 81 MG TAB.CHEW PO SCH (09:32)
[2017-06-04] MEDS: LEVOTHYROXINE SODIUM 25 MCG TABLET PO SCH (09:32)
[2017-06-04] MEDS: ATORVASTATIN 10 MG TABLET PO SCH (09:32)
[2017-06-04 10:00] VITALS: BP 154/57
--- NOTE | 2017-06-04 13:10 | NUR ---
RN OPENING NOTES RECEIVED PT. PT STABLE AND RESTING IN BED. A/0X4. NO S/S OF RESPIRATORY DISTRESS. FC IN PLACE AND PATENT. PT IS NPO FOR [place] STRESS TEST TO TAKE PLACE IN AM. IV ACCESS LOCATED ON RIGHT AC SL. SAFETY MEASURES IN PLACE, BED LOWERED TO LOWEST POSITION, SIDE RAILS RAISED X2. WILL CONTINUE TO MONITOR.
[2017-06-04 16:00] VITALS: BP 130/73
--- NOTE | 2017-06-04 18:31 | NUR ---
RN CLOSING NOTES PT IN BEDSIDE CHAIR COMPLETING DINNER. NO S/S OF SOB. PT DENIES ANY PAIN AT THIS TIME. PT INSTRUCTED TO USE CALL LIGHT TO NOTIFY STAFF WHEN READY TO BE PLACED IN BED, VERBALIZES UNDERSTANDING. ALL PT NEEDS ANTICIPATED AND MET. SAFETY MEASURES IN PLACE, CALL LIGHT WITHIN REACH. WILL ENDORSE TO LIMOUSINE AND HEARSE UPHOLSTERER FOR ELIAS.
--- NOTE | 2017-06-04 20:09 | NUR ---
RN OPENING NOTES RECEIVED PT IN THE BED. PT STABLE AND SEATING IN THE CHAIR. A/0X4. NO S/S OF RESPIRATORY DISTRESS. FC IN PLACE AND PATENT. IV ACCESS LOCATED ON RIGHT AC SL. SAFETY MEASURES IN PLACE, BED LOWERED TO LOWEST POSITION, SIDE RAILS RAISED X2, ALL BELONGINGS WITHIN REACH, CALL LIGHT WITHIN REACH. WILL CONTINUE TO MONITOR
[2017-06-05 04:00] VITALS: BP 125/62
[2017-06-05] MEDS: TOBRAMYCIN SULFATE OPHTH OINT 3.5 GM TUBE RIGHTEYE SCH ×4 (04:34→22:11)
--- NOTE | 2017-06-05 07:00 | NUR ---
RN CLOSING NOTES PT IN THE BED, ASLEEP, EASILY AWAKENED. NO S/S OF SOB. PT DENIED PAIN OR DISCOMFORT THROUGHT THE SHIFT. CALL LIGHT WITHIN REACH, BED IN THE LOW POSITION, CALL LIGHT WITHIN REACH. ALL PT NEEDS ANTICIPATED AND MET. SAFETY MEASURES IN PLACE. WILL ENDORSE TO MORNING SHIFT FOR ELIAS
--- NOTE | 2017-06-05 07:45 | NUR ---
RN NOTE: INITIAL PT RECEIVED ALERT AWAKE OX4. ON ROOM AIR,BREATHING PATTERN REGULAR & UNLABORED. DENIES PAIN & DISCOMFORT. IV SITE INTACT, SALINE LOCK. SAFETY MEASURES OBSERVED. F/C INTACT , DRAINING WELL WITH YELLOW COLOR URINE WITH GRAVITY,. CALL LIGHT WITHIN REACH. WILL CONTINUE TO MONITOR.
[2017-06-05 08:00] VITALS: BP 144/49
[2017-06-05 08:11] LABS: BASOPHILS % (AUTO) 0.2 % (0.0-2.0); EOSINOPHILS # (AUTO) 0.3 /CMM (0.0-0.7); EOSINOPHILS % (AUTO) 2.8 % (0.0-6.0); HEMATOCRIT 27 % (39-51); HEMOGLOBIN 9.1 g/dL (13.5-17.5); LYMPHOCYTES % (AUTO) 10.8 % (20.0-44.0); MEAN CORPUSCULAR HEMOGLOBIN 31 PG (26.0-33.0); MEAN CORPUSCULAR HGB CONC 34 g/dl (31.0-36.0); MEAN CORPUSCULAR VOLUME 92 fL (80-96); MONOCYTES # (AUTO) 0.8 /CMM (0.1-1.30); MONOCYTES % (AUTO) 9.3 % (2.0-12.0); NEUTROPHILS # (AUTO) 6.9 /CMM (1.8-8.9); NEUTROPHILS % (AUTO) 76.9 % (43.0-81.0); PLATELET COUNT (AUTO) 146 /CMM (150-450); RDW COEFFICIENT OF VARIATION 16.4 (11.5-15.0); RED BLOOD CELL COUNT(AUTO) 2.98 MIL/uL (4.5-6.0); WHITE BLOOD COUNT (AUTO) 8.9 K/uL (4.3-11.0)
[2017-06-05] MEDS: LEVOTHYROXINE SODIUM 25 MCG TABLET PO SCH (08:58)
[2017-06-05] MEDS: ATORVASTATIN 10 MG TABLET PO SCH (08:58)
[2017-06-05] MEDS: ASPIRIN 81 MG TAB.CHEW PO SCH (08:58)
[2017-06-05] MEDS: CARVEDILOL 3.125 MG TABLET PO SCH ×2 (08:58→22:10)
[2017-06-05 09:57] LABS: CALCIUM, SERUM 8.3 mg/dL (8.5-10.1); CARBON DIOXIDE 20 mmol/L (21-32); CHLORIDE 109 mmol/L (98-107); GLUCOSE 150 mg/dL (74-106); MAGNESIUM 1.8 mg/dL (1.8-2.4); PHOSPHORUS 3.5 mg/dL (2.5-4.9); POTASSIUM 5.1 mmol/L (3.5-5.1); SODIUM SERUM 139 mmol/L (136-145); UREA NITROGEN, BLOOD 65 mg/dL (7-18)
--- NOTE | 2017-06-05 15:08 | NUR ---
CHINTAN received a call from TOD Patino informing SW that pt's family would like a verification of admission letter for their employer. CHINTAN completed the verification of admission letter and gave it to data warehousing manager Latanya to give it to EARL Guerra during the 3PM meeting.
[2017-06-05 16:00] VITALS: BP 147/70
--- NOTE | 2017-06-05 18:50 | NUR ---
RN NOTES: RECEIVED VERBAL ORDERS TO TRANSFER PATIENT TO ROOM 205-1. GIVE REPORT TO GIANLUCA BARON. PER CHARGE NURSE WILL TRANSFER WITH NEXT SHIFT. PATIENT REMAINS STABLE DURING SHIFT, WAS ABLE TO SIT ON CHAIR FOR 3-4 HOURS. DENIES DISCOMFORT. WILL ENDORSE TO PM SHIFT FOR CONTINUITY OF CARE. CALL LIGHT WITHIN REACH.
--- NOTE | 2017-06-05 19:30 | NUR ---
SQL DATABASE ADMINISTRATOR NOTE, RECEIVED PATIENT AWAKE AND IN BED, NO S/S OR COMPLAINTS OF PAIN AT THIS TIME. PATIENT BREATHING IS UNLABORED WITH EQUAL RISE AND FALL OF THE CHEST. PATIENT IS ALERT AND ORIENTED X 4 ON ROOM AIR WITH A SPOO2 97%. PATIENT HAS RIGHT AC 20 GAUGE SALINE LOCK THAT IS INTACT, PATENT, AND FLUSHING WELL WITH NO S/S OF INFILTRATION. PATIENT ASSISTED WITH TURNING AND REPOSITIONING Q2HR AND PRN FOR COMFORT AND CIRCULATION. PATIENT HAS NO NEEDS AT THIS TIME. PATIENT EDUCATED ON THE USE OF THE CALL LIGHT. PATIENT BED SIDE RAILS UP X 2 FOR SAFETY. PATIENT BED IS LOCKED AND LOW WILL CONTINUE TO MONITOR AND MAINTAIN SAFETY Q15 MIN WITH THE HELP OF STAFF.
[2017-06-05 20:00] VITALS: BP 145/61
[2017-06-05 22:00] VITALS: BP 145/61
[2017-06-06] MEDS: ZOLPIDEM TARTRATE 5 MG TABLET PO PRN (01:39)
--- NOTE | 2017-06-06 01:39 | NUR ---
HAZARDOUS MATERIALS WASTE TECHNICIAN NOTE, PATIENT HAS A COMPLAINT OF NOT BEING ABLE TO SLEEP AND IS REQUESTING AMBIEN AT THIS TIME. PATIENT VITAL SIGNS ARE STABLE. GAVE AMBIEN 5MG PO HS ORDERED. WILL REASSESS FOR INSOMNIA AND I WILL CONTINUE TO MONITOR THIS PATIENT.
--- NOTE | 2017-06-06 02:00 | NUR ---
DIRECT SUPPORT STAFF MEMBER NOTE, PATIENT IS A SLEEP IN BED EASILY AROUSES, ALL SCHEDULED PM MEDS GIVEN. PATIENT HAS NO S/S OR COMPLAINTS OF PAIN AT THIS TIME. PATIENT IS DISPLAYING NO S/S OF APPARENT DISTRESS AT THIS TIME. PATIENT BREATHING IS UNLABORED WITH EQUAL RISE AND FALL OF THE CHEST. ALL PATIENT NEEDS ANTICIPATED AND MET. PATIENT KEPT CLEAN, DRY, AND COMFORTABLE. PATIENT BED IS LOCKED AND LOW, CALL LIGHT IN REACH, AND TWO SIDE RAILS UP FOR SAFETY. WILL CONTINUE TO MONITOR AND MAINTAIN SAFETY FOR THIS PATIENT.
[2017-06-06] MEDS: TOBRAMYCIN SULFATE OPHTH OINT 3.5 GM TUBE RIGHTEYE SCH ×3 (04:31→16:00)
--- NOTE | 2017-06-06 06:24 | NUR ---
HAND SPRING FORMER NOTE, PATIENT AWAKE AND IN BED, NO S/S OR COMPLAINTS OF PAIN AT THIS TIME. PATIENT BREATHING IS UNLABORED WITH EQUAL RISE AND FALL OF THE CHEST. PATIENT IS ALERT AND ORIENTED X 4 ON ROOM AIR WITH A SPOO2 97%. PATIENT HAS RIGHT AC 20 GAUGE SALINE LOCK THAT IS INTACT, PATENT, AND FLUSHING WELL WITH NO S/S OF INFILTRATION. PATIENT ASSISTED WITH TURNING AND REPOSITIONING Q2HR AND PRN FOR COMFORT AND CIRCULATION. ALL PATIENT NEEDS ANTICIPATED AND MET. PATIENT KEPT CLEAN, DRY, AND COMFORTABLE THROUGH OUT THE SHIFT. PATIENT BED SIDE RAILS UP X 2 FOR SAFETY. PATIENT BED IS LOCKED AND LOW WILL ENDORSE TO AM SHIFT NURSE FOR CONTINUATION OF CARE.
[2017-06-06 06:42] LABS: BASOPHILS % (AUTO) 0.1 % (0.0-2.0); EOSINOPHILS # (AUTO) 0.2 /CMM (0.0-0.7); EOSINOPHILS % (AUTO) 2.2 % (0.0-6.0); HEMATOCRIT 26 % (39-51); HEMOGLOBIN 8.6 g/dL (13.5-17.5); LYMPHOCYTES # (AUTO) 0.9 /CMM (0.8-4.8); LYMPHOCYTES % (AUTO) 11.8 % (20.0-44.0); MEAN CORPUSCULAR HEMOGLOBIN 30 PG (26.0-33.0); MEAN CORPUSCULAR HGB CONC 33 g/dl (31.0-36.0); MEAN CORPUSCULAR VOLUME 90 fL (80-96); MONOCYTES # (AUTO) 0.8 /CMM (0.1-1.30); MONOCYTES % (AUTO) 9.6 % (2.0-12.0); NEUTROPHILS % (AUTO) 76.3 % (43.0-81.0); PLATELET COUNT (AUTO) 177 /CMM (150-450); RDW COEFFICIENT OF VARIATION 14.8 (11.5-15.0); RED BLOOD CELL COUNT(AUTO) 2.85 MIL/uL (4.5-6.0); WHITE BLOOD COUNT (AUTO) 7.9 K/uL (4.3-11.0)
[2017-06-06 07:15] LABS: CALCIUM, SERUM 8.4 mg/dL (8.5-10.1); CARBON DIOXIDE 19 mmol/L (21-32); CHLORIDE 111 mmol/L (98-107); GLUCOSE 155 mg/dL (74-106); MAGNESIUM 1.8 mg/dL (1.8-2.4); PHOSPHORUS 3.8 mg/dL (2.5-4.9); POTASSIUM 4.8 mmol/L (3.5-5.1); SODIUM SERUM 140 mmol/L (136-145); UREA NITROGEN, BLOOD 65 mg/dL (7-18)
--- NOTE | 2017-06-06 07:18 | NUR ---
MS/RN Patient received Patient received from night time nanny. Awake, alert 4, bed in low setting, brakes locked, side rails X3 in upright position. Call ligth within reach, will continue to monitor and ensure safety.
[2017-06-06 08:00] VITALS: BP 146/70
[2017-06-06] MEDS: ATORVASTATIN 10 MG TABLET PO SCH (08:22)
[2017-06-06] MEDS: ASPIRIN 81 MG TAB.CHEW PO SCH (08:22)
[2017-06-06] MEDS: LEVOTHYROXINE SODIUM 25 MCG TABLET PO SCH (08:22)
[2017-06-06] MEDS: CARVEDILOL 3.125 MG TABLET PO SCH (08:24)
--- NOTE | 2017-06-06 09:00 | NUR ---
MS/RN Medications Morning medications administered as ordered, no difficulty swallowing.
[2017-06-06 10:02] VITALS: BP 146/70
--- NOTE | 2017-06-06 11:00 | NUR ---
MS/RN PT Seen by PT - able to ambulate in hallway using FWW, contact guard assist. Per PT, patient upon discharge will go to [facility] Acute Rehab.
[2017-06-06] MEDS ORDERED: CARV3.122 PO (11:37)
[2017-06-06] MEDS ORDERED: LEVO25TA7 PO (11:37)
[2017-06-06] MEDS ORDERED: TOBR3.5O RIGHTEYE (11:37)
--- NOTE | 2017-06-06 12:40 | NUR ---
MS/RN S/B Gee Newberry SUBSTITUTE CROSSING GUARD Seen by SUBSTITUTE CROSSING GUARD - patient to be discharged today to [facility] Acute Rehab unit.
--- NOTE | 2017-06-06 12:42 | NUR ---
Social service consult requested by [facility] Director TOD Elkins due to pt's blood toxicology report showing positive for benzo's and Opioids. SW met with pt. bedside. Pt. is alert and oriented x 4. Pt. states he takes Alprazolam (Xanax) at home when he is unable to sleep due to having anxiety. Pt. doesn't remember he is took too many but stated he is usually good about taking an accurate dosage. Pt. states his dental technician apprentice prescribes him the Xanax and he uses it as needed. Pt. has been taking Xanax for the past 40 years. SW encouraged pt. to be more careful with the amount of medication he is taking per dosage. Pt. understood. Pt. is going to transfer to [facility] this afternoon. No other social service needs are required at this time. SW is available if needed.
--- NOTE | 2017-06-06 13:30 | NUR ---
MS/spray dry operator paperwork Discharge paperwork completed.
--- NOTE | 2017-06-06 14:35 | NUR ---
[facility] requested discharge milk pickup truck driver be moved to after 7pm due to shift changes. Spoke with Celeset at [facility] and confirmed eta at 8pm, left message to son Mike and spoke with Gustavo at [facility]. Addendum: 06/06/17 at 1436 by BEAU MENA RN Amended: Links added.
--- NOTE | 2017-06-06 14:45 | NUR ---
MS/RN Report Attempted to call and give report to [facility] Acute Rehab, spoke with [facility]. Stated that they were unable to received the patient at 7p as this was change of shift time. Requesting later arrival time. Spoke with manager of case Edith, apple picker now scheduled for 8p.
[2017-06-06 16:00] VITALS: BP 162/74
--- NOTE | 2017-06-06 18:13 | NUR ---
MS/RN End note Patient ready for discharge, report still to be given to Rj Krishna. Will endorse to machine silver stripper.
--- NOTE | 2017-06-06 19:30 | NUR ---
RN NOTES RECEIVED PATIENT IN BED AWAKE, AO X 3, ABLE TO MAKE NEEDS KNOWN. NO ACUTE DISTRESS NOTED. DENIES ANY PAIN AT THIS TIME. SAFETY REMINDERS GIVEN. ON LOW BED WITH BILATERAL UPPER SIDE RAILS UP. FAMILY AT BEDSIDE. CALL VUONG WITHIN EASY REACH. WILL CONTINUE TO MONITOR.
--- NOTE | 2017-06-06 19:58 | NUR ---
RN NOTES REPORT GIVEN TO BARRON BARON AT [facility] ACUTE RE[facility]. [facility]BULN[facility] IN FACILITY TO FORMING PRESS OPERATOR PATIENT. REPORT AND DISCHARGE PAPERS GIVEN TO AMBULNZ STAFF. DISCHARGE INSTRUCTIONS GIVEN TO PATIENT; VERBALIZED UNDERSTANDING. BELONGINGS PACKED AND GIVEN TO FAMILY. PATIENT LEFT VIA GURNEY IN STABLE CONDITION.
== END 2017-06-06 20:00 | DRG 871 ==
LOC: ER 18:03 → ICU 22:20 → TELE1 05-30 09:11 → MEDSG1 05-31 08:19 → MEDSG2 06-05 21:17
PROVIDERS: ADMIT Nurse Practitioner Acute Care; ATTEND Nurse Practitioner Acute Care
DX: A41.9 Sepsis, unspecified organism (principal); I21.4 Non-ST elevation (NSTEMI) myocardial infarction; N17.0 Acute kidney failure with tubular necrosis; E11.22 Type 2 diabetes mellitus with diabetic chronic kidney disease; S00.11XA Contusion of right eyelid and periocular area, initial encounter; S02.2XXA Fracture of nasal bones, initial encounter for closed fracture; N39.0 Urinary tract infection, site not specified; E87.2 Acidosis; M62.82 Rhabdomyolysis; I24.9 Acute ischemic heart disease, unspecified; W01.0XXA Fall on same level from slipping, tripping and stumbling without subsequent striking against object, initial encounter; Z96.659 Presence of unspecified artificial knee joint; Z95.1 Presence of aortocoronary bypass graft; Z91.81 History of falling; Z79.82 Long term (current) use of aspirin; Z79.01 Long term (current) use of anticoagulants; I25.10 Atherosclerotic heart disease of native coronary artery without angina pectoris; Y92.009 Unspecified place in unspecified non-institutional (private) residence as the place of occurrence of the external cause; I12.9 Hypertensive chronic kidney disease with stage 1 through stage 4 chronic kidney disease, or unspecified chronic kidney disease; N18.3 Chronic kidney disease, stage 3 (moderate); E86.0 Dehydration; E87.5 Hyperkalemia; E11.65 Type 2 diabetes mellitus with hyperglycemia; F41.9 Anxiety disorder, unspecified; G47.00 Insomnia, unspecified; I25.2 Old myocardial infarction; L98.9 Disorder of the skin and subcutaneous tissue, unspecified; S81.011A Laceration without foreign body, right knee, initial encounter; L53.9 Erythematous condition, unspecified; R74.0 Nonspecific elevation of levels of transaminase and lactic acid dehydrogenase [LDH]
CPT/HCPCS: 36415; 70450-TC; 70486-TC; 71010-TC; 71260-TC; 72125-TC; 80048-TC; 80053-TC; 80061-TC; 80076-TC; 80305; 81000-TC; 82306; 82550-TC; 82553-TC; 82728-TC; 83540-TC; 83605-TC; 83735-TC; 84100-TC; 84439-TC; 84443-TC; 84484-TC; 85025-TC; 85730-TC; 86850-TC; 87040-TC; 87081-TC; 87086-TC; 93307-TC; 97110-TC; 97116-TC; 97530-TC; A4349; A6402; A6403; A9502; G0480; J0696; J0885; J2270; J2405; J2785; J7030; J7060; Q9967